=== PATIENT | male | born 1950 | race Caucasian/White ===

== ENCOUNTER 2016-12-08 11:35 | Emergency (ER) | payer MEDICARE ==
[2016-12-08 12:39] LABS: BASOPHIL 0.2 % (0-2); EOSINOPHIL 0.3 % (0-7); HGB 15.4 g/dl (13.2-18.0); LYMPHOCYTE 5.8 % (15-48); MCH 29.8 pg (25.0-31.0); MCHC 34.2 g/dL (32.0-36.0); MCV 87.2 fL (78.0-100.0); MONOCYTE 3.5 % (0-12); MPV 10.4 fL (6.0-9.5); PLT 222 K/uL (150-400); RBC 5.16 M/uL (4.70-6.00); RDW 13.4 % (11.5-14.0); WBC 8.6 K/uL (4.0-10.5)
[2016-12-08 12:41] LABS: NEUTROPHIL 90.2 % (41-80)
[2016-12-08 12:49] LABS: ALBUMIN 4.4 g/dL (3.4-4.8); BILIRUBIN - TOTAL 1.4 mg/dL (0.1-1.0); GLOBULIN (CALCULATION) 2.9 g/dL (2.2-4.2); POTASSIUM 4.3 mmol/L (3.5-5.1); TOTAL PROTEIN 7.3 g/dL (6.4-8.3)
== END 2016-12-08 14:15 | disposition home or self-care (01) ==
LOC: FER 11:35
PROVIDERS: Emergency Medicine
DX: R42 Dizziness and giddiness (principal); J98.11 Atelectasis; R00.0 Tachycardia, unspecified; E78.5 Hyperlipidemia, unspecified
CPT/HCPCS: 36415; 71020; 80053; 84484; 85025; 93005